=== PATIENT | female | born 1975 | race Caucasian/White ===

== ENCOUNTER 2022-01-23 09:57 | Emergency (ER) | payer OTHER, SELFPAY ==
[2022-01-23] VITALS (24 sets, daily range): BP systolic 128–144; BP diastolic 85–93; PULSE 61–83; RESP 12–30; TEMP 36.1; O2SAT 96–100
--- NOTE | ~2022-01-23 | CT_ITS ---
EXAMINATION: CTA chest PE protocol DATE: 01/23/2022 14:56 INDICATION: Chest pain, shortness of breath, elevated d-dimer. TECHNIQUE: Computed tomography angiography (CTA) of the chest was performed with 100 mL Omnipaque-350 intravenous contrast timed to evaluate the pulmonary arteries. Coronal maximum intensity projection 3D-reconstructions were created by the technologist. Automated exposure control and iterative reconst ruction technique were employed. Exam dose: 206.46 mGy-cm total exam DLP. COMPARISON: 01/19/2022 PA and lateral chest FINDINGS: There is diagnostic contrast enhanced small pulmonary stenosis of pulmonary embolism. No thoracic aortic aneurysm or dissection. Normal heart size. There is trace pericardial fluid. Prominent right thyroid goiter. No hilar or mediastinal mass lesion or lymphadenopathy. Minimal bilateral lower lobe dependent atelectasis. No pulmonary consolidation or pulmonary mass lesi on. Normal morphology of the adrenal glands. Included upper abdominal structures are unremarkable. IMPRESSION: No evidence of pulmonary embolism Reviewed, dictated and finalized at location A.
--- NOTE | ~2022-01-23 | XR_ITS ---
EXAMINATION: XR chest 2V 01/23/2022 11:05 INDICATION: Shortness of breath and cough PROCEDURE: Two-view chest COMPARISON: No prior studies for comparison. FINDINGS: The lungs are clear. The cardiomediastinal silhouette is within normal limits. There are no pleural effusions. There is no pneumothorax suspected. IMPRESSION: 1: NO ACUTE CARDIOPULMONARY DISEASE. Reviewed, dictated and finalized at location A.
--- NOTE | 2022-01-23 10:18 | ECG_ITS ---
Measurements Intervals [place] Rate: 61 P: 64 CT: 137 QRS: 37 QRSD: 89 T: 36 QT: 371 QTc: 376 Interpretive Statements SINUS RHYTHM BASELINE ARTIFACT- I, II, III, AVR, AVL, AVF NORMAL ECG NO PREVIOUS ECG AVAILABLE FOR COMPARISON Electronically Signed On 01-23-2022 11:15:20 CDT by Elie Daley D.O.
--- NOTE | 2022-01-23 10:19 | ED.URI ---
HPI - URI/Sore Throat General Chief Complaint: Upper Respiratory Infection Stated Complaint: URI - seen at [facility] - sx getting worse Time Seen by Provider: 01/23/22 10:07 History of Present Illness HPI Narrative: Patient is a 46-year-old female here for evaluation of upper respiratory infectious type symptoms for the past 4 days. Patient states that her symptoms began with a sore throat productive cough and shortness of breath. She went to [facility], [place], tested negative for COVID, flu, and strep. She was diagnosed with an upper respiratory infection after her chest x-ray was clear, she was given prednisone and Tessalon Perles but states that her symptoms have gotten worse. States that she is able to walk about 100 feet before becoming winded, and is now developing a discomfort in the center of her chest and along the left side of her ribs with cough. She is a previous smoker but quit 9 years ago. She has no other past medical history. No leg swelling, palpitations, fevers, chills. Related Data Allergies Allergy/AdvReac Type Severity Reaction Status Date / Time Penicillins Allergy Unknown Unknown Verified 01/23/22 10:08 Review of Systems Review of Systems: Gen: Denies fevers or chills Eyes: Denies eye pain or visual change ENT: Denies congestion Respiratory: Reports cough and shortness of breath CV: Reports pain in center chest with cough. Denies palpitations GI: Denies abdominal pain nausea, emesis or diarrhea : denies burning, urgency, frequency or hematuria Musculoskeletal: Denies back pain or muscle pain Neuro: Denies numbness, tingling, weakness or focal weakness Skin: Denies rash Except as documented, all other systems reviewed and negative Exam Narrative: APPEARANCE: Well appearing, no pain in distress, well-nourished. Head: Normocephalic and atraumatic. EYES: PERRLA/EOMI, conjunctivae clear NOSE: No nasal drainage EARS: External ear normal in appearance THROAT: No pharyngeal exudates, tonsillar swelling, uvular deviation. Oropharynx is clear. Mucous membranes are moist. NECK: Supple. No adenopathy, no masses. RESPIRATORY: Rales in upper lung patel bilaterally. respirations nonlabored. CARDIOVASCULAR: Regular rate and rhythm without murmurs, rubs, or gallops. ABDOMINAL: Normoactive bowel sounds. Soft, nontender, nondistended. No rebound tenderness or guarding. MUSCULOSKELETAL: Extremities are warm and well-perfused. Moves all extremities well. No edema. NEURO: Normal speech. No focal neurologic deficits. SKIN: Skin is warm and dry. No rashes. PSYCHIATRIC: Normal affect/mood. Course Vital Signs Vital signs: Vital Signs Temperature 97.0 F L 01/23/22 10:02 Pulse Rate 64 01/23/22 10:02 Respiratory Rate 16 01/23/22 10:02 Blood Pressure 128/85 01/23/22 10:02 Pulse Oximetry 100 01/23/22 10:02 Temperature 97.0 F L 01/23/22 10:02 Pulse Rate 78 01/23/22 14:30 Respiratory Rate 16 01/23/22 14:30 Blood Pressure 142/86 H 01/23/22 14:30 Pulse Oximetry 97 01/23/22 14:30 Oxygen Delivery Room Air 01/23/22 11:11 MDM - URI/Sore Throat MDM Narrative Medical decision making narrative: 46-year-old female here for evaluation of continued upper respiratory type symptoms over the past several days in addition to some intermittent chest pain and shortness of breath today. Patient is nontoxic-appearing upon examination with normal vital signs, she does have some rales in her upper lung patel. Chest x-ray is clear. Basic labs unremarkable. Troponin negative. BNP unremarkable. EKG nonischemic. Dimer was slightly elevated at 0.76, patient not having lower extremity swelling or pain to suggest DVT. Follow-up CTA PE study was negative for acute cardiopulmonary process and PE. Patient was given a breathing treatment in the ED and Toradol for her pain with improvement of her symptoms. Likely upper respiratory infection; do not feel any need for repeat COVID testing is indicated today as i
[2022-01-23] MEDS: ALBUTEROL SULFATE NEB 2.5 MG/3 ML INH 5 MG INHALATION (10:31)
[2022-01-23 10:48] LABS: Basophils Percent Auto 0.4 % (0.2-1.2); Eosinophils Percent Auto 0.5 % (0-4.4); Hematocrit 39.5 % (37.0-47.0); Hemoglobin 13.3 g/dL (12.0-15.0); Immature Granulocyte Absolute 0.03 K/mm3 (0.00-0.031); Immature Granulocyte Percent A 0.4 % (0-0.5); Lymphocytes Absolute Auto 1.06 K/mm3 (0.9-3.2); Lymphocytes Percent Auto 13.2 % (18.3-44.2); Mean Corpuscular HGB Conc 33.7 g/dl (32-36); Mean Corpuscular Hemoglobin 30.5 pg (26-34); Mean Corpuscular Volume 90.6 fl (80-100); Mean Platelet Volume 9.9 fl (7.4-10.4); Monocytes Absolute Auto 0.3 K/mm3 (0.1-0.6); Monocytes Percent Auto 3.7 % (2.6-8.5); Neutrophils Absolute Auto 6.6 K/mm3 (1.3-6.7); Neutrophils Percent Auto 81.8 % (45.5-73.1); Platelet Count Result 380 k/mm3 (150-375); Red Blood Count 4.36 M/mm3 (4.2-5.4)
[2022-01-23 10:59] LABS: Alanine Aminotransferase 19 U/L (6-35); Albumin Level 4.8 g/dL (3.5-5.1); Alkaline Phosphatase 121 U/L (38-126); Anion Gap 16 mmol/L (8-16); Aspartate Amino Transferase 26 U/L (14-36); Bilirubin,Total 0.9 mg/dL (0.2-1.3); Blood Urea Nitrogen 17 mg/dL (7-17); Calcium 9.6 mg/dL (8.4-10.2); Carbon Dioxide 25 mmol/L (22-30); Chloride 104 mmol/L (98-107); Estimated Glomerular Filt Rate 59; Glucose 105 mg/dL (65-110); Potassium 3.5 mmol/L (3.4-5.0); Sodium 145 mmol/L (137-145)
[2022-01-23 11:10] LABS: NT Pro B Type Natriuretic Pept 50 pg/mL (5-100)
[2022-01-23 11:13] LABS: Troponin I < 0.012 ng/mL (0.000-0.034)
[2022-01-23] MEDS: hydrOXYzine HCL 25 MG TABLET 50 MG PO (11:54)
[2022-01-23] MEDS: KETOROLAC 15 MG/ML VIAL (*BKC) IV PUSH (11:54)
[2022-01-23 14:14] LABS: D Dimer 0.76 ug/mL (<0.48)
== END 2022-01-23 16:01 | disposition home or self-care (01) ==
PROVIDERS: Physician Assistant; Emergency Provider Emergency Medicine; PCP Internal Medicine
DX: J06.9 Acute upper respiratory infection, unspecified (principal); R06.02 Shortness of breath
CPT/HCPCS: 36415; 71046; 71275; 80053; 81025; 83880; 84484; 85025; 85380; 93005; 94640; 96374; 99284; A9270; J1885; Q9967

== ENCOUNTER 2022-03-06 18:16 | Emergency (ER) | payer OTHER, SELFPAY ==
--- NOTE | ~2022-03-06 | XR_ITS ---
EXAM: XR hand RT min 3V DATE: 03/06/2022 18:44 HISTORY: STRUCK POSTERIOR HAND X 2 DAYS. NEW ONSET SWELLING/PAIN . COMPARISON: None available. FINDINGS: Normal mineralization. No fracture or dislocation. No lytic or blastic lesion. Joint space s are maintained. No erosion or periosteal change. Dorsal soft tissue swelling. IMPRESSION: No acute osseous finding in the right hand. Reviewed, dictated and finalized at location K.
[2022-03-06 18:31] VITALS: BP 148/76; PULSE 74; RESP 17; TEMP 36.4; O2SAT 100
--- NOTE | 2022-03-06 19:03 | ED.GENADULT ---
HPI - General Adult General Chief complaint: Extremity Injury, Upper Stated complaint: R HAND INJURY Time Seen by Provider: 03/06/22 18:45 Source: RN notes reviewed History of Present Illness HPI narrative: Patient presents emergency room from home for right hand pain. Patient states 2 days ago she tripped and fell striking her right hand on a dresser. States since that time she has pain and swelling over the posterior aspect of her right hand. She states she was at work today and felt a pop in her hand with some increased pain and come to the ER for further evaluation she denies any other trauma or injury from the fall states that she has full movement of her fingers without pain she denies any wrist or elbow pain. Denies blood thinner use Related Data Allergies Allergy/AdvReac Type Severity Reaction Status Date / Time Penicillins Allergy Unknown Unknown Verified 01/23/22 10:08 Review of Systems Review of Systems: Gen.: Denies fevers or chills Musculoskeletal: See HPI Neuro: Denies numbness, tingling, weakness Skin: Denies rash Endo: Denies DM PMFSH Past Medical History Medical History (Updated 03/06/22 @ 19:05 by Gabino Toribio DO) Patient denies significant medical history Social History Social History (Updated 03/06/22 @ 19:04 by Gabino Toribio DO) Smoking status: Never smoker Exam Narrative: APPEARANCE: No acute distress, nontoxic, resting in bed Eyes: EOMI HEENT: Normocephalic, atraumatic, RESPIRATORY: No respiratory distress MUSCULOSKELETAl: Right dorsal hand is tender to palpation with swelling and ecchymosis present, no tenderness of the wrist or elbow, full flexion-extension of all 5 MCP and IP joints, radial pulse 2+ neurovascular intact NEURO: Awake and alert. Following commands, speech normal, no focal deficits SKIN:: Warm, dry. Normal Color no rash or lesions Course Course Emergency Course: Discussed with patient results of workup and diagnosis. Discussed need for follow-up with primary care, proper use of medication, and reasons to return to the emergency department. Patient understands and agrees to current treatment plan Vital Signs Vital signs: Vital Signs Temperature 97.6 F 03/06/22 18:31 Pulse Rate 74 03/06/22 18:31 Respiratory Rate 17 03/06/22 18:31 Blood Pressure 148/76 H 03/06/22 18:31 Pulse Oximetry 100 03/06/22 18:31 Oxygen Delivery Room Air 03/06/22 18:31 Temperature 97.6 F 03/06/22 18:31 Pulse Rate 74 03/06/22 18:31 Respiratory Rate 17 03/06/22 18:31 Blood Pressure 148/76 H 03/06/22 18:31 Pulse Oximetry 100 03/06/22 18:31 Oxygen Delivery Room Air 03/06/22 18:31 Medical Decision Making Vital Signs Vital Signs: Vital Signs Temperature 97.6 F 03/06/22 18:31 Pulse Rate 74 03/06/22 18:31 Respiratory Rate 17 03/06/22 18:31 Blood Pressure 148/76 H 03/06/22 18:31 Pulse Oximetry 100 03/06/22 18:31 Oxygen Delivery Room Air 03/06/22 18:31 Temperature 97.6 F 03/06/22 18:31 Pulse Rate 74 03/06/22 18:31 Respiratory Rate 17 03/06/22 18:31 Blood Pressure 148/76 H 03/06/22 18:31 Pulse Oximetry 100 03/06/22 18:31 Oxygen Delivery Room Air 03/06/22 18:31 Imaging Data Radiologist's impression: ITS Impressions Hand X-Ray 03/06/22 18:51 IMPRESSION: No acute osseous finding in the right hand. Discharge Plan Discharge Clinical Impression: Contusion of hand, right Patient Disposition: Home, Self-Care Condition: Stable Instructions: Antibiotic Form, Contusion in Adults (ED) Additional Instructions: Return for increasing pain. Or any other symptoms of concern Prescriptions: New ibuprofen 600 mg tablet 600 mg PO TID PRN (Reason: pain) Qty: 14 0RF No Action albuterol sulfate 90 mcg/actuation aerosol powdr breath activated 2 inh inhalation Q6H PRN (Reason: shortness of breath) Qty: 1 0RF benzonatate 100 mg capsule 100 mg PO BID PRN (Patience
== END 2022-03-06 19:37 | disposition home or self-care (01) ==
PROVIDERS: Emergency Provider Emergency Medicine; PCP Internal Medicine
DX: S60.221A Contusion of right hand, initial encounter (principal); W01.0XXA Fall on same level from slipping, tripping and stumbling without subsequent striking against object, initial encounter
CPT/HCPCS: 73130; 99283

== ENCOUNTER 2022-07-08 14:33 | Emergency (ER) | payer OTHER, SELFPAY ==
--- NOTE | ~2022-07-08 | XR_ITS ---
XR chest 2V DATE: 07/08/2022 16:04 INDICATION: Left chest pain, radiating to back. Cough, shortness of breath. TECHNIQUE: PA and lateral views COMPARISON: 01/23/2022 CT pulmonary scan 01/23/2022 2 view chest FINDINGS: Normal heart size. No hilar or mediastinal enlargement. No pulmonary infiltrate or consolid ation, pleural effusion or pulmonary vascular congestion or pneumothorax. IMPRESSION: No active cardiopulmonary disease Reviewed, dictated and finalized at location L. [employer]
[2022-07-08 15:39] VITALS: BP 151/81; PULSE 63; RESP 15; TEMP 36.4; O2SAT 100
--- NOTE | 2022-07-08 17:23 | ED.SOB ---
HPI - SOB/Dyspnea General Chief Complaint: Shortness of Breath/Dyspnea Stated Complaint: shortness of breath with productive cough - chills Time Seen by Provider: 07/08/22 17:17 History of Present Illness HPI Narrative: Patient is a 47 year old female with a history of smoking here for evaluation of shortness of breath, congestion, nonproductive cough over the past 3 days. Patient states that she had a GI virus several days ago and aspirated on some of her vomit. Since then she has been experiencing the above symptoms. She has not attempted any medicine for symptoms. Her GI symptoms have since resolved. Has a history of pneumonia and states it feels similar. Related Data Allergies Allergy/AdvReac Type Severity Reaction Status Date / Time Penicillins Allergy Unknown Unknown Verified 07/08/22 14:34 Review of Systems Review of Systems: Gen.: Denies fevers or chills Eyes: Denies eye pain or visual change ENT: Denies congestion Respiratory: Reports shortness of breath and cough CV: Denies chest pain or palpitations GI: Denies abdominal pain nausea, emesis or diarrhea denies burning, urgency, frequency or hematuria Musculoskeletal: Denies back pain or muscle pain Neuro: Denies numbness, tingling, weakness or focal weakness Skin: Denies rash Except as documented, all other systems reviewed and negative PMFSH Past Medical History Medical History Patient denies significant medical history Social History Social History (Updated 03/06/22 @ 19:04 by Gabino Toribio DO) Smoking status: Never smoker Exam Narrative: APPEARANCE: Well appearing, no pain in distress, well-nourished. Head: Normocephalic and atraumatic. EYES: PERRLA/EOMI, conjunctivae clear NOSE: No nasal drainage EARS: External ear normal in appearance THROAT: Oropharynx is clear. Mucous membranes are moist. NECK: Supple. No adenopathy, no masses. RESPIRATORY: Diffuse expiratory rales throughout lung patel. Airway patent, respirations nonlabored. CARDIOVASCULAR: Regular rate and rhythm without murmurs, rubs, or gallops. ABDOMINAL: Normoactive bowel sounds. Soft, nontender, nondistended. No rebound tenderness or guarding. MUSCULOSKELETAL: Extremities are warm and well-perfused. Moves all extremities well. No edema. NEURO: Normal speech. No focal neurologic deficits. SKIN: Skin is warm and dry. No rashes. PSYCHIATRIC: Normal affect/mood.. Course Vital Signs Vital signs: Vital Signs Temperature 97.6 F 07/08/22 15:39 Pulse Rate 63 07/08/22 15:39 Respiratory Rate 15 07/08/22 15:39 Blood Pressure 151/81 H 07/08/22 15:39 Pulse Oximetry 100 07/08/22 15:39 Oxygen Delivery Room Air 07/08/22 15:39 Temperature 97.6 F 07/08/22 15:39 Pulse Rate 55 L 07/08/22 17:29 Respiratory Rate 20 07/08/22 17:29 Blood Pressure 151/81 H 07/08/22 15:39 Pulse Oximetry 100 07/08/22 15:39 Oxygen Delivery Room Air 07/08/22 17:18 MDM - SOB/Dyspnea MDM Narrative Medical decision making narrative: 47-year-old female here for evaluation of productive cough, shortness of breath, chills over the past 4 days, states this came on after she aspirated some of her vomitus. NO chest pain; notes slight pain in her side with cough. PERC negative; doubt PE. On exam she has diffuse rales but she is nontoxic in appearance, no respiratory distress, normal vital signs. Basic labs are unremarkable. EKG and troponin are nonischemic. COVID and flu are negative. Chest x-ray without acute abnormalities. Patient feeling improved after oral steroids, breathing treatment and Tessalon Perles. Suspect underlying COPD although patient has not been formally diagnosed given that she is a lifelong smoker and has frequent exacerbations where she is short of breath and has productive cough. We will send home with an inhaler and short burst of steroids. Advised pulmonary follow-up, return precautions wer
--- NOTE | 2022-07-08 17:24 | ECG_ITS ---
Measurements Intervals [place] Rate: 54 P: 68 UT: 154 QRS: 55 QRSD: 90 T: 50 QT: 401 QTc: 381 Interpretive Statements SINUS BRADYCARDIA BORDERLINE ECG COMPARED TO ECG 01/23/2022 10:30:49 SINUS BRADYCARDIA NOW PRESENT Electronically Signed On 07-08-2022 19:11:49 ENTRY TECH by Elie Daley D.O.
[2022-07-08 17:29] VITALS: PULSE 55; RESP 20
[2022-07-08] MEDS: ALBUTEROL SULFATE NEB 2.5 MG/3 ML INH INHALATION (17:29)
[2022-07-08 17:49] LABS: Basophils Absolute Auto 0.1 K/mm3 (0.0-0.1); Eosinophils Absolute Auto 0.4 K/mm3 (0-0.3); Eosinophils Percent Auto 5.6 % (0-4.4); Hematocrit 34.6 % (37.0-47.0); Hemoglobin 11.4 g/dL (12.0-15.0); Immature Granulocyte Absolute 0.06 K/mm3 (0.00-0.031); Immature Granulocyte Percent A 0.9 % (0-0.5); Lymphocytes Absolute Auto 1.42 K/mm3 (0.9-3.2); Lymphocytes Percent Auto 21.1 % (18.3-44.2); Mean Corpuscular HGB Conc 32.9 g/dl (32-36); Mean Corpuscular Hemoglobin 30.5 pg (26-34); Mean Corpuscular Volume 92.5 fl (80-100); Mean Platelet Volume 9.2 fl (7.4-10.4); Monocytes Absolute Auto 0.6 K/mm3 (0.1-0.6); Monocytes Percent Auto 8.3 % (2.6-8.5); Neutrophils Absolute Auto 4.3 K/mm3 (1.3-6.7); Neutrophils Percent Auto 63.1 % (45.5-73.1); Platelet Count Result 337 k/mm3 (150-375); Red Blood Count 3.74 M/mm3 (4.2-5.4); Red Cell Distribution Width 13.2 % (11.5-14.5); White Blood Count 6.7 K/mm3 (4.5-10.0)
[2022-07-08 17:52] LABS: Anion Gap 8 mmol/L (8-16); Blood Urea Nitrogen 20 mg/dL (7-17); Carbon Dioxide 25 mmol/L (22-30); Chloride 106 mmol/L (98-107); Estimated CRCL calculation 76 ml/min; Estimated Glomerular Filt Rate > 60; Glucose 80 mg/dL (65-110); Potassium 3.8 mmol/L (3.4-5.0); Sodium 139 mmol/L (137-145)
[2022-07-08] MEDS: BENZONATATE 100 MG CAPSULE PO (18:02)
[2022-07-08] MEDS: predniSONE 20 MG TABLET 60 MG PO (18:02)
[2022-07-08 18:04] LABS: Troponin I < 0.012 ng/mL (0.000-0.034)
[2022-07-08 18:25] LABS: Influenza A QL RT-PCR Negative (Negative); Influenza B QL RT-PCR Negative (Negative); SARS-CoV-2 RNA PCR Negative
[2022-07-08 19:10] VITALS: BP 142/87; PULSE 67; RESP 18; O2SAT 98
== END 2022-07-08 19:11 | disposition home or self-care (01) ==
PROVIDERS: Emergency Provider Physician Assistant; PCP Internal Medicine
DX: R06.02 Shortness of breath (principal); Z20.822 Contact with and (suspected) exposure to COVID-19; Z87.891 Personal history of nicotine dependence; R00.1 Bradycardia, unspecified
CPT/HCPCS: 36415; 71046; 80048; 84484; 85025; 87636; 93005; 94640; 99283; A9270; J7512

== ENCOUNTER 2022-09-04 14:48 | Emergency (ER) | payer OTHER, SELFPAY ==
--- NOTE | ~2022-09-04 | XR_ITS ---
EXAMINATION: XR forearm RT 2V DATE: 09/04/2022 15:41 INDICATION: Right forearm injury. TECHNIQUE: 2 views of right forearm were obtained. COMPARISON: None. FINDINGS: Bone alignment is normal. No fracture. There is a benign bone island in distal radius. Join t spaces are normal. No elbow joint effusion. IMPRESSION: 1. No fracture. Reviewed, dictated and finalized at location A. IMPRESSION: 1. No fracture.
--- NOTE | ~2022-09-04 | XR_ITS ---
EXAMINATION: XR wrist RT min 3V DATE: 09/04/2022 15:41 INDICATION: Right wrist injury. TECHNIQUE: 4 views of right wrist were obtained. COMPARISON: Right hand radiographs 03/06/2022 FINDINGS: Bone alignment is normal. No fracture. There is a benign bone island in distal radius. Ther e is mild osteoarthritis of first carpometacarpal joint. IMPRESSION: 1. Mild osteoarthritis of first carpometacarpal joint. Reviewed, dictated and finalized at location A.
[2022-09-04 14:55] VITALS: BP 127/75; PULSE 71; RESP 16; TEMP 36.4; O2SAT 100
--- NOTE | 2022-09-04 15:49 | ED.GENADULT ---
HPI - General Adult General Chief complaint: Extremity Injury, Upper Stated complaint: fall Time Seen by Provider: 09/04/22 14:58 History of Present Illness HPI narrative: 47-year-old female presented the emergency department for evaluation of right arm pain. Patient reports earlier today she had a ground-level fall after she tripped over a concrete structure in a parking lot. Patient denies striking head denies loss consciousness. Related Data Allergies Allergy/AdvReac Type Severity Reaction Status Date / Time Penicillins Allergy Unknown Unknown Verified 09/04/22 14:59 Review of Systems Review of Systems: All systems reviewed & are unremarkable except as noted in HPI and below PMFSH Past Medical History Medical History Patient denies significant medical history Social History Social History (Updated 03/06/22 @ 19:04 by Gabino Toribio DO) Smoking status: Never smoker Exam Narrative: APPEARANCE: Well appearing, no pain, no distress, well-nourished. HEAD: normocephalic, atraumatic. EYES: PERRLA/EOMI, conjunctivae clear. NOSE: Normal no drainage. RESPIRATORY: Airway patent, respirations nonlabored. Clear to auscultation bilaterally, no rales, rhonchi, wheezing. CARDIOVASCULAR: Regular rate and rhythm without murmurs rubs or gallops. ABDOMINAL: Soft, nontender, nondistended, normal bowel sounds MUSCULOSKELETAL: Moves all extremities. Contusion and pain of right forearm NEURO: Alert. Cranial nerves II through XII intact. Grossly intact SKIN: Warm, dry. Normal Color Course Course Emergency Course: 47-year-old female presented to the ED for evaluation of right wrist and arm pain. X-rays were negative for acute fractures or dislocations. Patient was neurovascular intact. Patient was updated on the results of the x-rays and was encouraged of close follow-up with her primary care physician. Vital Signs Vital signs: Vital Signs Temperature 97.5 F L 09/04/22 14:55 Pulse Rate 71 09/04/22 14:55 Respiratory Rate 16 09/04/22 14:55 Blood Pressure 127/75 09/04/22 14:55 Pulse Oximetry 100 09/04/22 14:55 Oxygen Delivery Room Air 09/04/22 14:55 Temperature 97.5 F L 09/04/22 14:55 Pulse Rate 71 09/04/22 14:55 Respiratory Rate 16 09/04/22 14:55 Blood Pressure 127/75 09/04/22 14:55 Pulse Oximetry 100 09/04/22 14:55 Oxygen Delivery Room Air 09/04/22 14:55 Medical Decision Making Vital Signs Vital Signs: Vital Signs Temperature 97.5 F L 09/04/22 14:55 Pulse Rate 71 09/04/22 14:55 Respiratory Rate 16 09/04/22 14:55 Blood Pressure 127/75 09/04/22 14:55 Pulse Oximetry 100 09/04/22 14:55 Oxygen Delivery Room Air 09/04/22 14:55 Temperature 97.5 F L 09/04/22 14:55 Pulse Rate 71 09/04/22 14:55 Respiratory Rate 16 09/04/22 14:55 Blood Pressure 127/75 09/04/22 14:55 Pulse Oximetry 100 09/04/22 14:55 Oxygen Delivery Room Air 09/04/22 14:55 Imaging Data Radiologist's impression: Impressions Forearm X-Ray 09/04/22 15:45 IMPRESSION: 1. No fracture. Wrist X-Ray 09/04/22 15:46 IMPRESSION: 1. Mild osteoarthritis of first carpometacarpal joint. Discharge Plan Discharge Clinical Impression: Arm pain Qualifiers: Laterality: right Qualified Code(s): M79.601 - Pain in right arm Patient Disposition: Home, Self-Care Condition: Stable Instructions: Antibiotic Form, Wrist Injury (ED) Additional Instructions: Tylenol and ibuprofen for pain control. Ice as directed. Vishal wrap for comfort. Have close follow-up with your primary care physician. If you have any worsening symptoms then please call or return to the emergency department. Prescriptions: No Action albuterol sulfate 90 mcg/actuation aerosol powdr breath activated 2 inh inhalation Q6H PRN (Reason: shortness of breath) Qty: 1 0RF benzonatate 100 mg capsule 100
[2022-09-04] MEDS: HYDROcodone/acetaminophen (*CRX) 5-325 MG TABLET 1 TAB PO (16:02)
[2022-09-04] MEDS: CYCLOBENZAPRINE HCL 10 MG TABLET PO (16:02)
== END 2022-09-04 16:31 | disposition home or self-care (01) ==
PROVIDERS: Emergency Provider Emergency Medicine; PCP Internal Medicine
DX: M18.9 Osteoarthritis of first carpometacarpal joint, unspecified (principal); W18.09XA Striking against other object with subsequent fall, initial encounter
CPT/HCPCS: 73090; 73110; 99283; A9270